=== PATIENT | female | born 1980 | race Caucasian/White ===

== ENCOUNTER 2017-03-01 07:50 | Day surgery (SDC) | payer OTHER ==
[~2017-03-01] VITALS: Ht 165.1 cm; Wt 65.8 kg
[2017-03-01] MEDS ORDERED: LORTAB 7.57.5 MG PO (11:06)
[2017-03-01 12:11] VITALS: BP 120/68
== END 2017-03-01 12:31 | disposition home or self-care (01) | DRG 743 ==
LOC: ORM 07:50
PROVIDERS: ATTEND Obstetrics & Gynecology
PROC: 0U5B8ZZ Destruction of Endometrium, Via Natural or Artificial Opening Endoscopic (ICD-10-PCS; principal; 2017-03-01)
PROC: 0UL74CZ Occlusion of Bilateral Fallopian Tubes with Extraluminal Device, Percutaneous Endoscopic Approach (ICD-10-PCS; 2017-03-01)
DX: N92.1 Excessive and frequent menstruation with irregular cycle (principal); F17.210 Nicotine dependence, cigarettes, uncomplicated; Z30.2 Encounter for sterilization; N94.6 Dysmenorrhea, unspecified; N84.0 Polyp of corpus uteri
CPT/HCPCS: J1100; J2710